=== PATIENT | male | born 1970 | race Caucasian/White ===

== ENCOUNTER → 2020-08-15 | Outpatient (CLI) | payer SELFPAY ==
[~2020-08-15] MED LIST: CLON0.5T OR; DOXY100T OR; MINI5CAP OR; NICO21DI4 TD; SERO1TAB OR; SERO200T43 OR; ZOLO100T OR
== END ==
LOC: M LABSMTC 13:03
PROVIDERS: ATTEND Pediatrics
DX: Z20.828 Contact with and (suspected) exposure to other viral communicable diseases (principal)

== ENCOUNTER 2021-01-14 22:16 | Emergency (ER) | payer OTHER, SELFPAY ==
[~2021-01-14] VITALS: Ht 175.3 cm; Wt 86.4 kg
[2021-01-14] MEDS: MORPHINE 2 MG/ML 1ML VIAL (J2270) IV PRN ×2 (22:50→23:05)
[2021-01-14 23:13] LABS: BASO # 0.1 10^3/uL (0.0-0.2); BASO % 0.5 % (0.0-1.0); EOS # 0.3 10^3/uL (0.0-0.5); EOS % 1.7 % (0.0-3.0); HEMATOCRIT 41.5 % (42.0-52.0); HEMOGLOBIN 13.6 g/dl (13.5-17.5); LYMPH # 2.6 10^3/uL (1.5-5.0); LYMPH % 15.5 % (24.0-44.0); MEAN CORPUSCULAR HGB CONC 32.8 g/dl (32.0-36.5); MEAN CORPUSCULAR VOLUME 85.4 fl (80.0-96.0); MONO # 2.1 10^3/uL (0.0-0.8); MONO % 12.7 % (2.0-8.0); NEUTROPHILS # 11.7 10^3/uL (1.5-8.5); NEUTROPHILS % 69.1 % (36.0-66.0); PLATELET COUNT, AUTOMATED 325 10^3/uL (150-450); RED BLOOD COUNT 4.86 10^6/uL (4.30-6.10)
[2021-01-14 23:24] LABS: INR 1.04; PROTHROMBIN TIME 13.8 SECONDS (12.5-14.3)
[2021-01-14 23:25] LABS: PARTIAL THROMBOPLASTIN TIME 30.4 SECONDS (24.2-38.5); WHITE BLOOD COUNT 16.9 10^3/uL (4.0-10.0)
--- NOTE | 2021-01-14 23:38 | REPVR ---
PROCEDURE INFORMATION: Exam: US Duplex Right Lower Extremity Veins, Limited Exam date and time: 01/14/2021 11:17 PM Age: 50 years old Clinical indication: Pain; Leg, upper and leg, lower; Right; Prior surgery; Surgery date: Post-operative (0-2 days); Surgery type: RT tibial osteotomy; Additional info: Pain/swelling/post op TECHNIQUE: Imaging protocol: Real-time Duplex ultrasound of the Right Lower Extremity with 2-D davison scale, color Doppler flow and spectral waveform analysis with image documentation. Limited exam was focused on the right lower extremity veins. COMPARISON: No relevant prior studies available. FINDINGS: Right deep veins: Unremarkable. The right common femoral, femoral, popliteal, anterior tibial, posterior tibial, and peroneal veins are patent without thrombus as visualized. However, the posterior tibial and peroneal veins in the proximal calf are obscured by a bandage. Normal compressibility, augmentation response, and Doppler waveforms. Right superficial veins: Unremarkable. Saphenofemoral junction is patent without thrombus. Soft tissues: Unremarkable. IMPRESSION: No deep vein thrombosis in the veins imaged in the right lower extremity. Electronically signed by: Chris Martel On 01/14/2021 23:38:30 PM
--- NOTE | 2021-01-14 23:46 | REPVR ---
PROCEDURE INFORMATION: Exam: XR Right Knee Exam date and time: 01/14/2021 11:03 PM Age: 50 years old Clinical indication: Pain TECHNIQUE: Imaging protocol: XR Right knee. Views: 1 or 2 views. COMPARISON: No relevant prior studies available. FINDINGS: Bones/joints: There is a medial side plate and screws fixating the right proximal tibia. There is no acute fracture, dislocation, bony destructive changes, or heterotopic ossification. A right knee joint effusion is present. Soft tissues: There is soft tissue swelling around the right knee. IMPRESSION: 1. Postoperative changes in the right knee. 2. Right knee joint effusion and soft tissue swelling around right knee. Electronically signed by: Chris Martel On 01/14/2021 23:46:27 PM
[2021-01-15 00:12] LABS: RSV AMPLIFICATION NEGATIVE (NEGATIVE)
[2021-01-15] MEDS ORDERED: FISH1000 PO (00:51)
[2021-01-15] MEDS ORDERED: ROSU40TA4 PO (00:51)
[2021-01-15] MEDS ORDERED: BUSP15TA47 PO (00:51)
[2021-01-15] MEDS ORDERED: FLUO20CA22 PO (00:51)
[2021-01-15] MEDS ORDERED: OXYC30TA PO (00:51)
[2021-01-15] MEDS ORDERED: PANT40TA29 PO (00:51)
[2021-01-15 00:54] LABS: BLOOD UREA NITROGEN 12 MG/DL (7-18); CALCIUM LEVEL 8.9 MG/DL (8.5-10.1); CARBON DIOXIDE LEVEL 24 MEQ/L (21-32); CHLORIDE LEVEL 104 MEQ/L (98-107); CREATININE FOR GFR 1.04 MG/DL (0.70-1.30); GLOMERULAR FILTRATION RATE > 60.0 (>60); GLUCOSE, FASTING 87 MG/DL (70-100); POTASSIUM SERUM 4.1 MEQ/L (3.5-5.1); SODIUM LEVEL 138 MEQ/L (136-145)
[2021-01-15 01:00] VITALS: BP 128/74
--- NOTE | 2021-01-15 08:42 | HPE ---
HISTORY AND PHYSICAL DATE OF ADMISSION: 01/14/2021 CHIEF COMPLAINT: Right lower extremity pain after high tibial osteotomy, rule out compartment syndrome. HISTORY OF PRESENT ILLNESS: This 50-year-old man presented to the emergency department. I was called by the on-call emergency department physician on 01/14/2021. This was at approximately 10:30 p.m. I returned the call at 10:37 p.m. There was concern for compartment syndrome after a high tibial osteotomy that was performed yesterday. I saw and assessed the patient shortly after 11 p.m. The patient had a right knee high tibial osteotomy performed by a surgeon, a [facility] surgeon. The patient states that he was there yesterday at 6:30 a.m. and was done at 3 p.m. This was done for "popping of the knees." He states that the pain was 9/10 after surgery, now it is 10/10. He only slept about one or two hours over the last 24 hours. Per the ED physician, the patient's significant other was giving the patient pain medications every eight hours, combined Tylenol and narcotic medication. The patient does state that they have slightly diminished sensation on the lateral side of the foot. They were also taking ibuprofen twice a day. PAST MEDICAL HISTORY: Includes depression, dyslipidemia, GERD and nightmares. MEDICATIONS: Fluoxetine, a medication for depression, a medication for cholesterol, a medication for GERD and fish oil. ALLERGIES: No known drug allergies. PAST SURGICAL HISTORY: Vasectomy. SOCIAL HISTORY: He is on [employer] 80% disability for his knees, arms and hands, the patient states. No anticoagulation. He is a nonsmoker. He works in [employer], windows systems administrator. PHYSICAL EXAMINATION: He is a 50-year-old man. I saw him, assessed him at both 11 p.m. as well as about 30 minutes after midnight on 01/15/21 about an hour and a half after I initially assessed him. Initially his pain was a 10 and on followup after appropriate pain medications, this pain was "3-4/10." The patient appeared in a moderate amount of discomfort the first time and then in no discomfort the second time I saw him. On inspection, there is a bandage overlying the proximal anteromedial tibia. Upon lifting up slightly on the dressing, the wound does appear clean and dry, free of redness or drainage. There is a moderate amount of swelling just distal to the knee but the anterior as well as posterior compartments on the lower extremity on the right side appear soft. No pain with passive stretch of the toes or the ankle. The patient is able to actively as well as passively dorsiflex and plantarflex the foot without difficulty. Normal sensation to the superficial and deep peroneal nerves as well as saphenous, sural and tibial when comparing both sides. The patient states it is symmetric. A strong dorsalis pedis as well as tibialis posterior pulse on both sides and comparable on both sides. IMAGING STUDIES: Radiographs reviewed of the right knee. This shows an appropriately placed high tibial osteotomy. No obvious perforation of the lateral cortex, the proximal tibia. There is an effusion. DVT ultrasound of the right lower extremity reveals no obvious venous embolism. ASSESSMENT AND PLAN: This 50-year-old man does not appear to have compartment syndrome of his right lower extremity. I recommend rest, ice elevation, appropriate pain medication and followup with the surgeon. The patient understands and I communicated this to Dr. Granado, the emergency department physician in charge of this patient's care at this point. The patient understands and is in agreement with the plan and should follow up with his index surgeon. FABIOLA
== END 2021-01-15 01:01 | disposition home or self-care (01) ==
LOC: M ED 22:16
DX: G89.18 Other acute postprocedural pain (principal); M25.561 Pain in right knee; K21.9 Gastro-esophageal reflux disease without esophagitis; F43.10 Post-traumatic stress disorder, unspecified; F32.9 Major depressive disorder, single episode, unspecified; Z79.899 Other long term (current) drug therapy; Z79.891 Long term (current) use of opiate analgesic
CPT/HCPCS: 73560; 80048; 85025; 85610; 85730; 87631; 93971; 96374; 96376; 99284; J2270

== ENCOUNTER → 2022-06-19 | Outpatient (CLI) | payer OTHER ==
[~2022-06-19] MED LIST changes: +BUSP15TA47 PO; +FISH1000 PO; +FLUO20CA22 PO; +OXYC30TA PO; +PANT40TA29 PO; +ROSU40TA4 PO
== END ==
LOC: M SOG 07:55
PROVIDERS: ATTEND Orthopaedic Surgery Hand Surgery
DX: M25.571 Pain in right ankle and joints of right foot (principal); M25.572 Pain in left ankle and joints of left foot; M25.521 Pain in right elbow; M25.522 Pain in left elbow

== ENCOUNTER → 2022-07-31 | Outpatient (CLI) | payer OTHER ==
[~2022-07-31] MED LIST changes: +GASTROGRAFIN SOLUTION 30ML ONE
== END ==
LOC: M PLAIMG 08:32
PROVIDERS: ATTEND Physician Assistant Medical
DX: K62.5 Hemorrhage of anus and rectum (principal); R10.2 Pelvic and perineal pain
CPT/HCPCS: 74176; Q9963

== ENCOUNTER 2022-10-06 16:08 | Emergency (ER) | payer OTHER ==
[~2022-10-06] VITALS: Ht 177.8 cm; Wt 87.7 kg
[~2022-10-06 16:08] MED LIST changes: -GASTROGRAFIN SOLUTION 30ML ONE
[2022-10-06] MEDS ORDERED: ISOVUE-370 76% 100ML VIAL As Ordered ONE (17:38)
[2022-10-06 17:43] LABS: BASO # 0.1 10^3/uL (0.0-0.2); BASO % 0.5 % (0.0-1.0); EOS # 0.5 10^3/uL (0.0-0.5); EOS % 5.1 % (0.0-3.0); HEMATOCRIT 43.6 % (42.0-52.0); HEMOGLOBIN 14.5 g/dl (13.5-17.5); LYMPH # 2.2 10^3/uL (1.5-5.0); LYMPH % 20.4 % (24.0-44.0); MEAN CORPUSCULAR HEMOGLOBIN 28.5 pg (27.0-33.0); MEAN CORPUSCULAR HGB CONC 33.3 g/dl (32.0-36.5); MEAN CORPUSCULAR VOLUME 85.7 fl (80.0-96.0); MONO % 9.4 % (2.0-8.0); NEUTROPHILS # 6.8 10^3/uL (1.5-8.5); NEUTROPHILS % 64.1 % (36.0-66.0); PLATELET COUNT, AUTOMATED 334 10^3/uL (150-450); RED BLOOD COUNT 5.09 10^6/uL (4.30-6.10); WHITE BLOOD COUNT 10.6 10^3/uL (4.0-10.0)
[2022-10-06 17:44] LABS: INR 0.88; PROTHROMBIN TIME 12.1 SECONDS (12.5-14.5)
[2022-10-06 17:45] LABS: PARTIAL THROMBOPLASTIN TIME 26.3 SECONDS (24.8-34.2)
[2022-10-06 18:02] LABS: BILIRUBIN,DIRECT 0.2 MG/DL (<0.4); BILIRUBIN,TOTAL 0.5 MG/DL (0.3-1.2); TOTAL PROTEIN 6.5 G/DL (5.7-8.2)
[2022-10-06 19:22] VITALS: BP 126/87
== END 2022-10-06 19:25 | disposition home or self-care (01) ==
LOC: M ED 16:08
DX: K92.2 Gastrointestinal hemorrhage, unspecified (principal); E78.5 Hyperlipidemia, unspecified; F17.200 Nicotine dependence, unspecified, uncomplicated; Z79.83 Long term (current) use of bisphosphonates; Z79.02 Long term (current) use of antithrombotics/antiplatelets; Z79.899 Other long term (current) drug therapy; Z79.52 Long term (current) use of systemic steroids
CPT/HCPCS: 36415; 74177; 80047; 80076; 83690; 85025; 85610; 85730; 99284; Q9967

== ENCOUNTER → 2023-01-26 | Outpatient (CLI) | payer OTHER | LOC: M SLEEP 20:00 | PROVIDERS: ATTEND Physician Assistant Medical | DX: G47.33 Obstructive sleep apnea (adult) (pediatric) (principal) ==

== ENCOUNTER → 2023-05-16 | Outpatient (CLI) | payer OTHER | LOC: M SLEEP 20:00 | PROVIDERS: ATTEND Physician Assistant Medical | DX: G47.33 Obstructive sleep apnea (adult) (pediatric) (principal) ==

== ENCOUNTER → 2023-07-04 | Outpatient (CLI) | payer OTHER | LOC: M PLAIMG 16:05 | PROVIDERS: ATTEND Nurse Practitioner Family | DX: M25.511 Pain in right shoulder (principal); M25.512 Pain in left shoulder ==

== ENCOUNTER 2023-08-21 11:46 | Day surgery (SDC) | payer OTHER ==
[~2023-08-21] VITALS: Ht 175.3 cm; Wt 92.8 kg
[~2023-08-21 11:46] MED LIST changes: +DICL100G10 TOP; +FENO145T7 PO; +FLUO90CA2 PO; +NAPR-885 PO; +NS 1,000 ML IV ONE
[2023-08-21] MEDS ORDERED: fentaNYL 100 MCG/2 ML INJECTION As Ordered ONE (13:03)
[2023-08-21] MEDS ORDERED: LIDOCAINE 2% 100MG/5ML SDV (FOR ANES.) As Ordered ONE (13:04)
[2023-08-21] MEDS ORDERED: propofoL 200 MG/20 ML VIAL As Ordered ONE (13:04)
[2023-08-21 13:42] VITALS: TEMP 98.6
[2023-08-21 14:00] VITALS: BP 115/81; O2SAT 96
== END 2023-08-21 14:19 | disposition home or self-care (01) ==
LOC: M OPP 11:46
PROVIDERS: ATTEND Internal Medicine Gastroenterology
DX: Z12.11 Encounter for screening for malignant neoplasm of colon (principal); K64.0 First degree hemorrhoids; D12.2 Benign neoplasm of ascending colon; K22.89 Other specified disease of esophagus; R12 Heartburn; F17.200 Nicotine dependence, unspecified, uncomplicated; G47.30 Sleep apnea, unspecified; Z79.02 Long term (current) use of antithrombotics/antiplatelets; Z79.1 Long term (current) use of non-steroidal anti-inflammatories (NSAID); Z79.899 Other long term (current) drug therapy
CPT/HCPCS: 43239; 45385; 88305; J3010

== ENCOUNTER → 2023-10-01 | Outpatient (CLI) | payer OTHER ==
[~2023-10-01] MED LIST changes: -NS 1,000 ML IV ONE
== END ==
LOC: M RAD 12:41
PROVIDERS: ATTEND Physician Assistant Medical
DX: Z12.2 Encounter for screening for malignant neoplasm of respiratory organs (principal); Z87.891 Personal history of nicotine dependence

== ENCOUNTER → 2025-07-27 | Outpatient (CLI) | payer OTHER ==
[~2025-07-27] MED LIST changes: +FLUO-365 PO; -FLUO20CA22 PO; -ROSU40TA4 PO; +ROSU40TA81 PO
== END ==
LOC: M RAD 15:34
PROVIDERS: ATTEND Nurse Practitioner Family
DX: Z87.891 Personal history of nicotine dependence (principal)